=== PATIENT | male | born 1980 | race Caucasian/White ===

== ENCOUNTER 2019-03-12 12:51 | Emergency (ER) | payer BC ==
[2019-03-12] MEDS: IBUPROFEN 600 MG TAB PO (13:27)
== END 2019-03-12 14:11 | disposition home or self-care (01) ==
LOC: E/R 12:51
DX: R07.9 Chest pain, unspecified (principal); F41.9 Anxiety disorder, unspecified
CPT/HCPCS: 99283; 99283-25

== ENCOUNTER 2019-03-28 14:42 | Emergency (ER) | payer BC ==
[2019-03-28] MEDS: FAMOTIDINE 20 MG INJ IV (15:58)
[2019-03-28] MEDS: SOD CHLORIDE 0.9% 1,000 ML IV (15:58)
[2019-03-28 16:00] LABS: ADD MAN DIFF? NO
[2019-03-28 16:05] LABS: BASOPHILS % 0.3 % (0.0-2.0); EOSINOPHILS % 0.3 % (0.0-7.0); HEMATOCRIT 43.1 % (42.0-52.0); HEMOGLOBIN 14.6 g/dl (14.0-18.0); LYMPHOCYTES # 1.3 10^3/ul (0.8-2.9); LYMPHOCYTES % 16.1 % (15.0-51.0); MEAN CORPUSCULAR HEMOGLOBIN 29.7 pg (29.0-33.0); MEAN CORPUSCULAR HGB CONC 33.9 g/dl (32.0-37.0); MEAN CORPUSCULAR VOLUME 87.8 fl (82.0-101.0); MEAN PLATELET VOLUME 10.2 fl (7.4-10.4); MONOCYTE # 0.4 10^3/ul (0.3-0.9); MONOCYTES % 4.4 % (0.0-11.0); NEUTROPHIL # 6.2 10^3/ul (1.6-7.5); NEUTROPHILS % 78.5 % (39.0-77.0); PLATELET COUNT 203 10^3/UL (140-415); RED BLOOD COUNT 4.91 10^6/ul (4.70-6.10)
[2019-03-28 16:05] LABS: WHITE BLOOD COUNT 7.9 10^3/ul (4.8-10.8)
[2019-03-28] MEDS: morphine 2 MG INJ IV (16:05)
[2019-03-28] MEDS: ONDANSETRON 4 MG INJ IV (16:06)
[2019-03-28 16:16] LABS: ADD UMIC NO; UR ASCORBIC ACID NEGATIVE (NEGATIVE); UR BILIRUBIN (Dip) NEGATIVE (NEGATIVE); UR BLOOD (Dip) NEGATIVE (NEGATIVE); UR CLARITY CLEAR (CLEAR); UR COLOR STRAW (YELLOW); UR GLUCOSE (Dip) NEGATIVE (NEGATIVE); UR KETONES (Dip) NEGATIVE (NEGATIVE); UR LEUKOCYTE ESTERASE (Dip) NEGATIVE Leu/ul (NEGATIVE); UR NITRITE (Dip) NEGATIVE (NEGATIVE); UR SPECIFIC GRAVITY (Dip) 1.009 (1.003-1.030); UR TOTAL PROTEIN (Dip) NEGATIVE (NEGATIVE); UR UROBILINOGEN (Dip) NEGATIVE (NEGATIVE)
[2019-03-28 16:28] LABS: ALANINE AMINOTRANSFERASE 32 IU/L (13-69); ALBUMIN 4.6 g/dl (3.3-4.9); ALBUMIN/GLOBULIN RATIO 1.39; ALKALINE PHOSPHATASE 68 IU/L (42-121); ANION GAP 8 (5-13); ASPARTATE AMINO TRANSFERASE 19 IU/L (15-46); BILIRUBIN,INDIRECT 0.6 mg/dl (0-1.1); BILIRUBIN,TOTAL 0.6 mg/dl (0.2-1.3); BLOOD UREA NITROGEN 15 mg/dl (7-20); CALCIUM 9.7 mg/dl (8.4-10.2); CARBON DIOXIDE 30 mmol/L (21-31); CHLORIDE 105 mmol/L (97-110); CREATININE 0.75 mg/dl (0.61-1.24); Estimated GFR > 60 mL/min (>60); GLUCOSE 99 mg/dl (70-220); LIPASE 36 U/L (23-300); POTASSIUM 4.4 mmol/L (3.5-5.1); SODIUM 143 mmol/L (135-144); TOTAL PROTEIN 7.9 g/dl (6.1-8.1)
== END 2019-03-28 17:32 | disposition home or self-care (01) ==
LOC: FTE 14:42
DX: R10.32 Left lower quadrant pain (principal)
CPT/HCPCS: 36415; 74176; 80053; 81003; 83690; 85025; 96374; 99285-25

== ENCOUNTER 2019-04-10 12:54 | Emergency (ER) | payer BC ==
[2019-04-10] MEDS: KETOROLAC 60 MG INJ IM (13:40)
== END 2019-04-10 14:30 | disposition home or self-care (01) ==
LOC: FTE 12:54
DX: R51 Headache (principal)
CPT/HCPCS: 96372; 99284-25

== ENCOUNTER 2019-04-10 20:15 | Emergency (ER) | payer BC ==
[2019-04-10] MEDS: ACETAMINOPHEN 500 MG TAB PO (22:26)
== END 2019-04-11 00:26 | disposition home or self-care (01) ==
LOC: FTE 04-11 00:26
DX: R51 Headache (principal); M94.0 Chondrocostal junction syndrome [Tietze]
CPT/HCPCS: 71046; 93005; 99284-25

== ENCOUNTER 2019-04-23 22:28 | Emergency (ER) | payer BC ==
[2019-04-24] MEDS: DEXAMETHASONE 10 MG/ML 1 ML INJ IM (01:32)
== END 2019-04-24 02:14 | disposition home or self-care (01) ==
LOC: FTE 22:28
DX: M94.0 Chondrocostal junction syndrome [Tietze] (principal); R51 Headache
CPT/HCPCS: 93005; 96372; 99284-25; J1100

== ENCOUNTER 2019-04-27 21:05 | Emergency (ER) | payer BC | END 2019-04-28 00:13 | disposition home or self-care (01) | LOC: FTE 04-28 00:13 | DX: R42 Dizziness and giddiness (principal); F17.210 Nicotine dependence, cigarettes, uncomplicated | CPT/HCPCS: 70450; 93005; 99284-25 ==

== ENCOUNTER 2019-04-30 12:33 | Emergency (ER) | payer BC ==
[2019-04-30] MEDS: ONDANSETRON (ODT) 4 MG TAB ODT (13:19)
[2019-04-30] MEDS: HYDROCODONE/APAP (5/325) TAB PO (13:20)
[2019-04-30 13:34] LABS: ADD MAN DIFF? NO
[2019-04-30 13:38] LABS: BASOPHILS % 0.5 % (0.0-2.0); EOSINOPHILS # 0.1 10^3/ul (0.0-0.5); EOSINOPHILS % 0.8 % (0.0-7.0); HEMATOCRIT 46.2 % (42.0-52.0); HEMOGLOBIN 15.6 g/dl (14.0-18.0); LYMPHOCYTES # 1.5 10^3/ul (0.8-2.9); LYMPHOCYTES % 23.5 % (15.0-51.0); MEAN CORPUSCULAR HEMOGLOBIN 30.5 pg (29.0-33.0); MEAN CORPUSCULAR HGB CONC 33.8 g/dl (32.0-37.0); MEAN CORPUSCULAR VOLUME 90.2 fl (82.0-101.0); MONOCYTE # 0.3 10^3/ul (0.3-0.9); MONOCYTES % 4.5 % (0.0-11.0); NEUTROPHIL # 4.5 10^3/ul (1.6-7.5); NEUTROPHILS % 70.4 % (39.0-77.0); PLATELET COUNT 235 10^3/UL (140-415); RED BLOOD COUNT 5.12 10^6/ul (4.70-6.10); RED CELL DISTRIBUTION WIDTH 11.8 % (11.5-14.5)
[2019-04-30 13:38] LABS: WHITE BLOOD COUNT 6.4 10^3/ul (4.8-10.8)
[2019-04-30 13:45] LABS: ADD UMIC NO; UR ASCORBIC ACID NEGATIVE (NEGATIVE); UR BILIRUBIN (Dip) NEGATIVE (NEGATIVE); UR BLOOD (Dip) NEGATIVE (NEGATIVE); UR CLARITY CLEAR (CLEAR); UR COLOR YELLOW (YELLOW); UR GLUCOSE (Dip) NEGATIVE (NEGATIVE); UR KETONES (Dip) NEGATIVE (NEGATIVE); UR LEUKOCYTE ESTERASE (Dip) NEGATIVE Leu/ul (NEGATIVE); UR NITRITE (Dip) NEGATIVE (NEGATIVE); UR SPECIFIC GRAVITY (Dip) 1.008 (1.003-1.030); UR TOTAL PROTEIN (Dip) NEGATIVE (NEGATIVE); UR UROBILINOGEN (Dip) NEGATIVE (NEGATIVE)
[2019-04-30 14:14] LABS: ALANINE AMINOTRANSFERASE 49 IU/L (13-69); ALBUMIN 4.9 g/dl (3.3-4.9); ALBUMIN/GLOBULIN RATIO 1.32; ALKALINE PHOSPHATASE 76 IU/L (42-121); ANION GAP 7 (5-13); ASPARTATE AMINO TRANSFERASE 22 IU/L (15-46); BILIRUBIN,INDIRECT 0.7 mg/dl (0-1.1); BILIRUBIN,TOTAL 0.7 mg/dl (0.2-1.3); BLOOD UREA NITROGEN 15 mg/dl (7-20); CALCIUM 10.1 mg/dl (8.4-10.2); CARBON DIOXIDE 33 mmol/L (21-31); CHLORIDE 100 mmol/L (97-110); Estimated GFR > 60 mL/min (>60); GLUCOSE 94 mg/dl (70-220); LIPASE 68 U/L (23-300); SODIUM 140 mmol/L (135-144); TOTAL PROTEIN 8.6 g/dl (6.1-8.1)
== END 2019-04-30 14:33 | disposition home or self-care (01) ==
LOC: FTE 12:33
DX: R10.9 Unspecified abdominal pain (principal); F17.210 Nicotine dependence, cigarettes, uncomplicated
CPT/HCPCS: 74176; 80053; 81003; 83690; 85025; 99284-25

== ENCOUNTER 2019-05-07 21:09 | Emergency (ER) | payer BC | END 2019-05-07 23:09 | disposition home or self-care (01) | LOC: FTE 21:09 | DX: R42 Dizziness and giddiness (principal); R55 Syncope and collapse; F17.210 Nicotine dependence, cigarettes, uncomplicated | CPT/HCPCS: 82962; 93005; 99283-25 ==